=== PATIENT | female | born 1985 | race Caucasian/White ===

== ENCOUNTER 2019-04-20 18:05 | Emergency (ER) | payer BC ==
[~2019-04-20] VITALS: Wt 78.0 kg
[~2019-04-20 18:05] MED LIST: ACET325T33 PO; IBUP-1561 PO
[2019-04-20 18:08] VITALS: BP 124/59; PULSE 69; RESP 18
== END 2019-04-20 19:41 | disposition home or self-care (01) ==
LOC: E/R 18:05
DX: M79.604 Pain in right leg (principal); M54.2 Cervicalgia
CPT/HCPCS: 99282